=== PATIENT | female | born 1970 | race Caucasian/White ===

== ENCOUNTER 2017-05-23 15:39 | Emergency (ER) | END 2017-05-23 16:50 | disposition home or self-care (01) ==

== ENCOUNTER 2017-07-12 06:06 | Emergency (ER) | END 2017-07-12 08:00 | disposition home or self-care (01) ==

== ENCOUNTER 2018-01-15 18:57 | Emergency (ER) | END 2018-01-15 22:10 | disposition home or self-care (01) ==